=== PATIENT | male | born 1945 | race Caucasian/White ===

== ENCOUNTER 2024-12-16 06:51 | Inpatient (IN) ==
[2024-12-16] MEDS: LACTATED RINGERS 1,000 ML IV ONE (07:19)
[2024-12-16 07:51] LABS: Basophils # (Auto) 0.01 K/mcL (0.00-0.30); Basophils % (Auto) 0 % (0.0-2.0); Eosinophils # (Auto) 0.01 K/mcL (0.00-0.70); Eosinophils % (Auto) 0 % (0.0-7.0); Hematocrit 41.7 % (40.1-51.0); Hemoglobin 13.8 g/dL (13.7-17.5); Lymphocytes # (Auto) 0.86 K/mcL (1.50-4.80); Lymphocytes % (Auto) 3.5 % (15.5-49.0); Mean Cell Volume 97.9 fL (80.0-100.0); Mean Corpuscular HGB Conc 33.1 g/dL (31.0-36.0); Monocytes # (Auto) 1.64 K/mcL (0.10-0.90); Monocytes % (Auto) 6.6 % (1.0-12.0); Neutrophils % (Auto) 89.3 % (38.0-78.0); Platelet Count 336 K/mcL (140-440); RBC 4.26 M/mcL (4.63-6.08); Red Cell Distribution Width 12.8 % (11.5-14.5); WBC 24.9 K/mcL (4.5-11.0)
[2024-12-16 08:11] LABS: ALT/SGPT 27 U/L (<40); AST/SGOT 20 U/L (<40); Albumin 3.6 gm/dL (3.2-5.2); Albumin/Globulin Ratio 1.2 (1.0-2.3); Alkaline Phosphatase 142 U/L (39-117); Bilirubin,Total 1.1 mg/dL (0.1-1.0); Blood Urea Nitrogen 53 mg/dL (8-23); Calcium 10.1 mg/dL (8.6-10.4); Carbon Dioxide 19 mmol/L (22-30); Chloride 101 mmol/L (96-108); Creatine Kinase 36 U/L (24-195); Glomerular Filtration Rate 23; Glucose 377 mg/dL (70-105); Potassium 4.2 mmol/L (3.3-5.1); Sodium 136 mmol/L (133-145)
[2024-12-16 08:14] LABS: INR 1.2 (0.9-1.1); Prothrombin Time 16.2 sec (11.9-14.5)
[2024-12-16] MEDS: PIPERACILLIN SODIUM/TAZOBACTAM 4.5 GM in DEXTROSE 5% IN WATER 50 ML IV ONE (08:33)
[2024-12-16] MEDS: ACETAMINOPHEN 325 MG TABLET PO ONE ×2 (08:36→09:40)
[2024-12-16] MEDS: DILTIAZEM 125 MG in DEXTROSE 5% IN WATER 100 ML IV SCH (09:09)
[2024-12-16] MEDS: 0.9 % SODIUM CHLORIDE 1,000 ML IV SCH (09:33)
[2024-12-16] MEDS: DOXYCYCLINE 100 MG in DEXTROSE 5% IN WATER 100 ML IV SCH (09:33)
[2024-12-16] MEDS: LORazepam 2 MG/ML VIAL IV ONE (09:42)
[2024-12-16] MEDS: 0.9 % SODIUM CHLORIDE 500 ML IV ONE (11:46)
[2024-12-16] MEDS: VANCOMYCIN 1,500 MG in 0.9 % SODIUM CHLORIDE 500 ML IV ONE ×2 (13:19→13:39)
[2024-12-16] MEDS: VANCOMYCIN PER PHARMACY IV ONE (13:40)
[2024-12-16] MEDS ORDERED: VANCOMYCIN PER PHARMACY IV SCH (14:30)
[2024-12-16] MEDS ORDERED: DEXTROSE 31 GM ORAL.SUSP PO PRN (14:30)
[2024-12-16] MEDS ORDERED: DEXTROSE 50% 50 ML VIAL IV PRN (14:30)
[2024-12-16] MEDS ORDERED: POLYETHYLENE GLYCOL 3350 17 GM PACKET PO PRN (14:30)
[2024-12-16] MEDS ORDERED: ONDANSETRON 4 MG/2 ML VIAL IV PRN (14:30)
[2024-12-16] MEDS ORDERED: IPRATROPIUM/ALBUTEROL 3 ML AMPUL.NEB NEB PRN (14:30)
[2024-12-16] MEDS ORDERED: SENNOSIDES 1 TABLET PO PRN (14:30)
[2024-12-16] MEDS ORDERED: ACETAMINOPHEN 500 MG TABLET PO PRN (14:36)
[2024-12-16] MEDS: IPRATROPIUM/ALBUTEROL 3 ML AMPUL.NEB NEB SCH (14:40)
[2024-12-16] MEDS: 0.9 % SODIUM CHLORIDE 10 ML SYRINGE IV SCH (14:58)
[2024-12-16] MEDS: LACTATED RINGERS 1,000 ML IV SCH (15:07)
[2024-12-16] MEDS: INSULIN LISPRO 1 UNIT/0.01 ML UNIT SQ SCH ×2 (17:35→17:36)
[2024-12-16] MEDS: CEFEPIME 2 GM VIAL IV SCH (21:03)
[2024-12-16] MEDS: APIXABAN 2.5 MG TABLET PO SCH (21:03)
[2024-12-16] MEDS: ATORVASTATIN 40 MG TABLET PO SCH (21:03)
[2024-12-16] MEDS: INSULIN GLARGINE, HUMAN 1 UNIT/0.01 ML SQ SCH (21:03)
[2024-12-17 06:55] LABS: Basophils # (Auto) 0.01 K/mcL (0.00-0.30); Basophils % (Auto) 0.1 % (0.0-2.0); Eosinophils # (Auto) 0.08 K/mcL (0.00-0.70); Eosinophils % (Auto) 0.5 % (0.0-7.0); Hematocrit 32.1 % (40.1-51.0); Hemoglobin 10.6 g/dL (13.7-17.5); Mean Cell Volume 99.1 fL (80.0-100.0); Mean Platelet Volume 9.1 fL (8.8-12.5); Monocytes # (Auto) 0.93 K/mcL (0.10-0.90); Monocytes % (Auto) 6.2 % (1.0-12.0); Neutrophils % (Auto) 88.7 % (38.0-78.0); Platelet Count 246 K/mcL (140-440); RBC 3.24 M/mcL (4.63-6.08); WBC 14.9 K/mcL (4.5-11.0)
[2024-12-17 07:13] LABS: ALT/SGPT 30 U/L (<40); AST/SGOT 25 U/L (<40); Albumin 2.8 gm/dL (3.2-5.2); Albumin/Globulin Ratio 1.2 (1.0-2.3); Alkaline Phosphatase 121 U/L (39-117); Bilirubin,Direct 0.4 mg/dL (<0.3); Bilirubin,Total 0.7 mg/dL (0.1-1.0); Blood Urea Nitrogen 45 mg/dL (8-23); Calcium 9.1 mg/dL (8.6-10.4); Carbon Dioxide 19 mmol/L (22-30); Chloride 109 mmol/L (96-108); Globulin 2.3 gm/dL (2.2-3.7); Glomerular Filtration Rate 27; Glucose 58 mg/dL (70-105); Lactate Dehydrogenase 117 U/L (135-225); Phosphorous 2.5 mg/dL (2.5-4.5); Potassium 3.4 mmol/L (3.3-5.1); Sodium 139 mmol/L (133-145); Triglycerides 75 mg/dL (<150); Uric Acid 9.3 mg/dL (2.5-8.0)
[2024-12-17] MEDS: VITAMIN D3 25 MCG TABLET PO SCH (09:10)
[2024-12-17 10:02] LABS: Vancomycin,Random 11.5 ug/mL
[2024-12-17] MEDS: VANCOMYCIN 1,000 MG in 0.9 % SODIUM CHLORIDE 250 ML IV SCH (11:26)
[2024-12-17] MEDS: LACTATED RINGERS 250 ML IV ONE (12:22)
[2024-12-17] MEDS: METOPROLOL TARTRATE 5 MG/5 ML VIAL IV SCH ×2 (12:59→13:04)
[2024-12-17] MEDS ORDERED: 0.9 % SODIUM CHLORIDE 1,000 ML IV SCH (13:00)
[2024-12-17 13:26] LABS: Basophils # (Auto) 0.01 K/mcL (0.00-0.30); Basophils % (Auto) 0.1 % (0.0-2.0); Eosinophils # (Auto) 0.11 K/mcL (0.00-0.70); Eosinophils % (Auto) 0.8 % (0.0-7.0); Hematocrit 35.2 % (40.1-51.0); Hemoglobin 11.5 g/dL (13.7-17.5); Lymphocytes # (Auto) 0.64 K/mcL (1.50-4.80); Lymphocytes % (Auto) 4.9 % (15.5-49.0); Mean Cell Volume 98.6 fL (80.0-100.0); Mean Corpuscular HGB Conc 32.7 g/dL (31.0-36.0); Mean Platelet Volume 8.5 fL (8.8-12.5); Monocytes # (Auto) 0.68 K/mcL (0.10-0.90); Monocytes % (Auto) 5.2 % (1.0-12.0); Neutrophils % (Auto) 88.5 % (38.0-78.0); Platelet Count 200 K/mcL (140-440); RBC 3.57 M/mcL (4.63-6.08); Red Cell Distribution Width 12.9 % (11.5-14.5); WBC 13.1 K/mcL (4.5-11.0)
[2024-12-17] MEDS: METOPROLOL TARTRATE 5 MG/5 ML VIAL IV ONE ×2 (13:30→13:31)
[2024-12-17] MEDS: FUROSEMIDE 40 MG/4 ML VIAL IV ONE (13:31)
[2024-12-17 13:51] LABS: ALT/SGPT 40 U/L (<40); AST/SGOT 37 U/L (<40); Albumin 2.9 gm/dL (3.2-5.2); Albumin/Globulin Ratio 1.2 (1.0-2.3); Alkaline Phosphatase 156 U/L (39-117); Bilirubin,Direct 0.5 mg/dL (<0.3); Bilirubin,Total 0.8 mg/dL (0.1-1.0); Blood Urea Nitrogen 40 mg/dL (8-23); Calcium 9.1 mg/dL (8.6-10.4); Carbon Dioxide 20 mmol/L (22-30); Chloride 106 mmol/L (96-108); Globulin 2.4 gm/dL (2.2-3.7); Glomerular Filtration Rate 28; Glucose 187 mg/dL (70-105); Lactate Dehydrogenase 123 U/L (135-225); Potassium 3.3 mmol/L (3.3-5.1); Sodium 138 mmol/L (133-145); Triglycerides 108 mg/dL (<150); Uric Acid 8.6 mg/dL (2.5-8.0)
[2024-12-17] MEDS: FUROSEMIDE 40 MG/4 ML VIAL IV SCH (13:53)
[2024-12-17] MEDS: LIDOCAINE 2% URO-JET 10 ML JEL.PF.APP UR ONE (13:56)
[2024-12-17] MEDS: POTASSIUM CHLORIDE 20 MEQ TABLET PO ONE (14:44)
[2024-12-17 15:47] LABS: Appearance,Urine Slightly Cloudy (Clear); Bacteria,Urine Rare /hpf (0); Bilirubin,Urine Negative (Negative); Color,Urine Yellow; Glucose,Urine (UA) 100 mg/dL (Negative); Ketones,Urine Negative (Negative); Leukocyte Esterase,Urine Negative /uL (Negative); Nitrate,Urine Negative (Negative); PH,Urine 5.5 (5.0-9.0); Protein,Urine 30 mg/dL (Negative); Specific Gravity,Urine 1.015 (1.000-1.035); Urine Blood Large ery/mcL (Negative); Urine RBC 120 /hpf (0-3); Urine Squamous Epithelial Cell 0 /hpf (0-4); Urine WBC 2 /hpf (0-4); Urobilinogen,Urine 0.2 mg/dL
[2024-12-17] MEDS ORDERED: DILTIAZEM 125 MG in DEXTROSE 5% IN WATER 100 ML IV PRN (17:14)
[2024-12-17] MEDS: METOPROLOL TARTRATE 25 MG TABLET PO ONE (19:20)
[2024-12-17] MEDS: POTASSIUM PHOSPHATE 40 MEQ in DEXTROSE 5% IN WATER 500 ML IV ONE (19:20)
[2024-12-17] MEDS: POTASSIUM PHOSPHATE 66 MEQ/15 ML VIAL IV ONE (19:38)
[2024-12-17] MEDS: METOPROLOL TARTRATE 25 MG TABLET ONE (19:38)
[2024-12-17] MEDS: INSULIN GLARGINE, HUMAN 1 UNIT/0.01 ML SQ SCH (21:09)
[2024-12-17] MEDS: TAMSULOSIN 0.4 MG CAPSULE PO SCH (21:09)
[2024-12-17] MEDS: CEFEPIME 1 GM VIAL IV SCH (21:09)
[2024-12-18 07:51] LABS: Basophils # (Auto) 0.01 K/mcL (0.00-0.30); Basophils % (Auto) 0.1 % (0.0-2.0); Eosinophils # (Auto) 0.17 K/mcL (0.00-0.70); Eosinophils % (Auto) 1.5 % (0.0-7.0); Hematocrit 34.2 % (40.1-51.0); Hemoglobin 11.2 g/dL (13.7-17.5); Lymphocytes # (Auto) 0.63 K/mcL (1.50-4.80); Lymphocytes % (Auto) 5.7 % (15.5-49.0); Mean Cell Volume 98.6 fL (80.0-100.0); Mean Corpuscular HGB Conc 32.7 g/dL (31.0-36.0); Mean Platelet Volume 9.1 fL (8.8-12.5); Monocytes # (Auto) 0.78 K/mcL (0.10-0.90); Monocytes % (Auto) 7.1 % (1.0-12.0); Neutrophils % (Auto) 85.1 % (38.0-78.0); Platelet Count 212 K/mcL (140-440); RBC 3.47 M/mcL (4.63-6.08); Red Cell Distribution Width 12.9 % (11.5-14.5); WBC 11.1 K/mcL (4.5-11.0)
[2024-12-18 08:08] LABS: ALT/SGPT 53 U/L (<40); AST/SGOT 48 U/L (<40); Albumin 2.8 gm/dL (3.2-5.2); Albumin/Globulin Ratio 1.2 (1.0-2.3); Alkaline Phosphatase 179 U/L (39-117); Bilirubin,Direct 0.5 mg/dL (<0.3); Bilirubin,Total 0.9 mg/dL (0.1-1.0); Blood Urea Nitrogen 32 mg/dL (8-23); Calcium 8.8 mg/dL (8.6-10.4); Carbon Dioxide 19 mmol/L (22-30); Chloride 108 mmol/L (96-108); Globulin 2.4 gm/dL (2.2-3.7); Glomerular Filtration Rate 30; Glucose 54 mg/dL (70-105); Lactate Dehydrogenase 119 U/L (135-225); Phosphorous 2.8 mg/dL (2.5-4.5); Potassium 3.4 mmol/L (3.3-5.1); Sodium 139 mmol/L (133-145); Triglycerides 83 mg/dL (<150); Uric Acid 8.8 mg/dL (2.5-8.0)
[2024-12-18] MEDS: METOPROLOL TARTRATE 25 MG TABLET PO SCH (08:22)
[2024-12-18] MEDS: predniSONE 20 MG TABLET PO SCH (11:27)
[2024-12-18] MEDS: LEVOFLOXACIN 750 MG/150 ML BAG IV SCH (17:15)
[2024-12-18] MEDS: VANCOMYCIN 1,000 MG in 0.9 % SODIUM CHLORIDE 250 ML IV SCH (18:59)
[2024-12-18] MEDS: INSULIN GLARGINE, HUMAN 1 UNIT/0.01 ML SQ SCH (20:27)
[2024-12-19 06:56] LABS: Basophils # (Auto) 0 K/mcL (0.00-0.30); Basophils % (Auto) 0 % (0.0-2.0); Eosinophils # (Auto) 0 K/mcL (0.00-0.70); Eosinophils % (Auto) 0 % (0.0-7.0); Hematocrit 31.4 % (40.1-51.0); Hemoglobin 10.6 g/dL (13.7-17.5); Lymphocytes # (Auto) 0.33 K/mcL (1.50-4.80); Lymphocytes % (Auto) 4.3 % (15.5-49.0); Mean Cell Volume 96.9 fL (80.0-100.0); Mean Corpuscular HGB Conc 33.8 g/dL (31.0-36.0); Monocytes # (Auto) 0.33 K/mcL (0.10-0.90); Monocytes % (Auto) 4.3 % (1.0-12.0); Neutrophils % (Auto) 90.9 % (38.0-78.0); Platelet Count 207 K/mcL (140-440); RBC 3.24 M/mcL (4.63-6.08); Red Cell Distribution Width 12.7 % (11.5-14.5); WBC 7.7 K/mcL (4.5-11.0)
[2024-12-19 07:40] LABS: ALT/SGPT 49 U/L (<40); AST/SGOT 33 U/L (<40); Albumin 2.8 gm/dL (3.2-5.2); Albumin/Globulin Ratio 1.2 (1.0-2.3); Alkaline Phosphatase 176 U/L (39-117); Bilirubin,Direct 0.3 mg/dL (<0.3); Bilirubin,Total 0.6 mg/dL (0.1-1.0); Blood Urea Nitrogen 39 mg/dL (8-23); Calcium 9.1 mg/dL (8.6-10.4); Carbon Dioxide 19 mmol/L (22-30); Chloride 107 mmol/L (96-108); Globulin 2.4 gm/dL (2.2-3.7); Glomerular Filtration Rate 28; Glucose 228 mg/dL (70-105); Lactate Dehydrogenase 122 U/L (135-225); Phosphorous 3.1 mg/dL (2.5-4.5); Potassium 4.4 mmol/L (3.3-5.1); Sodium 138 mmol/L (133-145); Triglycerides 69 mg/dL (<150); Uric Acid 8.5 mg/dL (2.5-8.0)
[2024-12-19 12:17] LABS: Vancomycin,Random 19.1 ug/mL
[2024-12-19] MEDS: AMOXICILLIN/POTASSIUM CLAV 875 MG TABLET PO SCH (12:58)
[2024-12-19] MEDS ORDERED: AMOXICILLIN/POTASSIUM CLAV 875 MG TABLET PO SCH ×2 (17:30)
[2024-12-20 06:54] LABS: Basophils # (Auto) 0 K/mcL (0.00-0.30); Basophils % (Auto) 0 % (0.0-2.0); Eosinophils # (Auto) 0 K/mcL (0.00-0.70); Eosinophils % (Auto) 0 % (0.0-7.0); Hematocrit 31.1 % (40.1-51.0); Hemoglobin 10.5 g/dL (13.7-17.5); Lymphocytes # (Auto) 0.48 K/mcL (1.50-4.80); Lymphocytes % (Auto) 4.7 % (15.5-49.0); Mean Cell Volume 97.2 fL (80.0-100.0); Mean Corpuscular HGB Conc 33.8 g/dL (31.0-36.0); Mean Platelet Volume 8.9 fL (8.8-12.5); Monocytes # (Auto) 0.51 K/mcL (0.10-0.90); Neutrophils % (Auto) 89.8 % (38.0-78.0); Platelet Count 232 K/mcL (140-440); Red Cell Distribution Width 12.9 % (11.5-14.5); WBC 10.2 K/mcL (4.5-11.0)
[2024-12-20 07:39] LABS: C-Reactive Protein 5.85 mg/dL (0.03-0.80)
[2024-12-20 07:39] LABS: ALT/SGPT 46 U/L (<40); AST/SGOT 29 U/L (<40); Albumin 2.7 gm/dL (3.2-5.2); Albumin/Globulin Ratio 1.2 (1.0-2.3); Alkaline Phosphatase 157 U/L (39-117); Bilirubin,Direct 0.2 mg/dL (<0.3); Bilirubin,Total 0.4 mg/dL (0.1-1.0); Blood Urea Nitrogen 48 mg/dL (8-23); Calcium 9.3 mg/dL (8.6-10.4); Carbon Dioxide 18 mmol/L (22-30); Chloride 110 mmol/L (96-108); Globulin 2.3 gm/dL (2.2-3.7); Glomerular Filtration Rate 28; Glucose 236 mg/dL (70-105); Lactate Dehydrogenase 129 U/L (135-225); Phosphorous 3.3 mg/dL (2.5-4.5); Potassium 4.6 mmol/L (3.3-5.1); Sodium 139 mmol/L (133-145); Triglycerides 74 mg/dL (<150); Uric Acid 8.6 mg/dL (2.5-8.0)
[2024-12-20] MEDS: LEVOFLOXACIN 750 MG TABLET PO SCH (09:06)
[2024-12-20 11:30] VITALS: TEMP 97.3; O2SAT 98
== END 2024-12-20 12:47 | disposition home or self-care (01) | DRG 177 ==
LOC: ED 06:51 → ICU 14:23 → MEDSUR 12-19 05:47
PROVIDERS: ADMIT Student in an Organized Health Care Education/Training Program; ATTEND Student in an Organized Health Care Education/Training Program

== ENCOUNTER 2025-01-30 13:38 | Inpatient (IN) ==
[2025-01-30 14:10] LABS: Basophils # (Auto) 0.01 K/mcL (0.00-0.30); Basophils % (Auto) 0.1 % (0.0-2.0); Eosinophils # (Auto) 0.02 K/mcL (0.00-0.70); Eosinophils % (Auto) 0.2 % (0.0-7.0); Hemoglobin 12.6 g/dL (13.7-17.5); Lymphocytes # (Auto) 0.29 K/mcL (1.50-4.80); Lymphocytes % (Auto) 3.3 % (15.5-49.0); Mean Cell Volume 95.5 fL (80.0-100.0); Mean Corpuscular HGB Conc 33.2 g/dL (31.0-36.0); Mean Platelet Volume 8.6 fL (8.8-12.5); Monocytes # (Auto) 0.27 K/mcL (0.10-0.90); Monocytes % (Auto) 3.1 % (1.0-12.0); Neutrophils % (Auto) 91.6 % (38.0-78.0); Platelet Count 298 K/mcL (140-440); RBC 3.98 M/mcL (4.63-6.08); Red Cell Distribution Width 13.7 % (11.5-14.5); WBC 8.8 K/mcL (4.5-11.0)
[2025-01-30 14:25] LABS: ALT/SGPT 30 U/L (<40); AST/SGOT 37 U/L (<40); Albumin 2.7 gm/dL (3.2-5.2); Albumin/Globulin Ratio 1.1 (1.0-2.3); Alkaline Phosphatase 138 U/L (39-117); Bilirubin,Total 0.6 mg/dL (0.1-1.0); Blood Urea Nitrogen 78 mg/dL (8-23); Calcium 10.7 mg/dL (8.6-10.4); Carbon Dioxide 23 mmol/L (22-30); Chloride 103 mmol/L (96-108); Globulin 2.5 gm/dL (2.2-3.7); Glomerular Filtration Rate 15; Glucose 80 mg/dL (70-105); Potassium 3.6 mmol/L (3.3-5.1); Sodium 140 mmol/L (133-145)
[2025-01-30] MEDS: 0.9 % SODIUM CHLORIDE 500 ML IV ONE (14:26)
[2025-01-30] MEDS: METOPROLOL TARTRATE 5 MG/5 ML VIAL IV ONE (14:29)
[2025-01-30 18:54] LABS: Appearance,Urine Clear (Clear); Bilirubin,Urine Negative (Negative); Calcium Oxalate Crystals,Urine Mod /hpf; Color,Urine Yellow; Glucose,Urine (UA) Negative (Negative); Ketones,Urine Negative (Negative); Leukocyte Esterase,Urine Negative /uL (Negative); Nitrate,Urine Negative (Negative); Protein,Urine Negative (Negative); Specific Gravity,Urine 1.015 (1.000-1.035); Urine Blood Negative ery/mcL (Negative); Urine RBC 0 /hpf (0-3); Urine Squamous Epithelial Cell 1 /hpf (0-4); Urine WBC 0 /hpf (0-4); Urobilinogen,Urine Normal
[2025-01-30] MEDS: DEXTROSE 50% 50 ML SYRINGE IV ONE (19:02)
[2025-01-30] MEDS ORDERED: ACETAMINOPHEN 325 MG TABLET PO PRN (20:06)
[2025-01-30] MEDS ORDERED: ONDANSETRON 4 MG/2 ML VIAL IV PRN (20:06)
[2025-01-30] MEDS ORDERED: IPRATROPIUM/ALBUTEROL 3 ML AMPUL.NEB NEB PRN (20:06)
[2025-01-30] MEDS ORDERED: oxyCODONE IR 5 MG TABLET PO PRN (20:06)
[2025-01-30] MEDS ORDERED: DEXTROSE 31 GM ORAL.SUSP PO PRN (20:06)
[2025-01-30] MEDS: 0.9 % SODIUM CHLORIDE 1,000 ML IV SCH (20:26)
[2025-01-30] MEDS: 0.9 % SODIUM CHLORIDE 10 ML SYRINGE IV SCH (20:32)
[2025-01-30] MEDS: INSULIN LISPRO 1 UNIT/0.01 ML UNIT SQ SCH (21:26)
[2025-01-30] MEDS: DOCUSATE SODIUM 100 MG CAPSULE PO SCH (21:29)
[2025-01-30] MEDS: SENNOSIDES 1 TABLET PO SCH (21:29)
[2025-01-31] MEDS: DEXTROSE 50% 50 ML VIAL IV PRN (06:43)
[2025-01-31] MEDS: DEXTROSE 50% 50 ML SYRINGE IV ONE (06:52)
[2025-01-31 07:43] LABS: Basophils # (Auto) 0.02 K/mcL (0.00-0.30); Basophils % (Auto) 0.3 % (0.0-2.0); Eosinophils # (Auto) 0.01 K/mcL (0.00-0.70); Eosinophils % (Auto) 0.1 % (0.0-7.0); Hematocrit 35.9 % (40.1-51.0); Hemoglobin 11.9 g/dL (13.7-17.5); Lymphocytes # (Auto) 0.25 K/mcL (1.50-4.80); Lymphocytes % (Auto) 3.2 % (15.5-49.0); Mean Cell Volume 97.3 fL (80.0-100.0); Mean Corpuscular HGB Conc 33.1 g/dL (31.0-36.0); Mean Platelet Volume 8.8 fL (8.8-12.5); Monocytes # (Auto) 0.27 K/mcL (0.10-0.90); Monocytes % (Auto) 3.5 % (1.0-12.0); Neutrophils % (Auto) 91.9 % (38.0-78.0); Platelet Count 267 K/mcL (140-440); RBC 3.69 M/mcL (4.63-6.08); WBC 7.8 K/mcL (4.5-11.0)
[2025-01-31 08:00] LABS: ALT/SGPT 27 U/L (<40); AST/SGOT 43 U/L (<40); Albumin 2.4 gm/dL (3.2-5.2); Alkaline Phosphatase 132 U/L (39-117); Bilirubin,Total 0.6 mg/dL (0.1-1.0); Blood Urea Nitrogen 79 mg/dL (8-23); Carbon Dioxide 21 mmol/L (22-30); Chloride 107 mmol/L (96-108); Globulin 2.5 gm/dL (2.2-3.7); Glomerular Filtration Rate 17; Glucose 92 mg/dL (70-105); Potassium 3.3 mmol/L (3.3-5.1); Sodium 142 mmol/L (133-145)
[2025-01-31 10:01] LABS: Estimated Average Glucose(eAG) 169 mg/dL; Hemoglobin A1C 7.5 % Hgb (4.0-6.0)
[2025-01-31] MEDS: DEXTROSE 5%-1/2NS 1,000 ML IV SCH (10:27)
[2025-01-31] MEDS: MEGESTROL ACETATE 400 MG/10 ML UDC PO SCH (15:13)
[2025-01-31] MEDS: POTASSIUM CHLORIDE 20 MEQ/15 ML ML PO SCH (17:23)
[2025-01-31] MEDS: traZODone HCL 50 MG TABLET PO PRN (20:06)
[2025-01-31] MEDS: TAMSULOSIN 0.4 MG CAPSULE PO SCH (21:02)
[2025-01-31] MEDS: APIXABAN 2.5 MG TABLET PO SCH (21:03)
[2025-01-31] MEDS: ATORVASTATIN 40 MG TABLET PO SCH (21:03)
[2025-02-01 05:59] LABS: Basophils # (Auto) 0.01 K/mcL (0.00-0.30); Basophils % (Auto) 0.2 % (0.0-2.0); Eosinophils # (Auto) 0.04 K/mcL (0.00-0.70); Eosinophils % (Auto) 0.6 % (0.0-7.0); Hematocrit 32.4 % (40.1-51.0); Hemoglobin 10.6 g/dL (13.7-17.5); Lymphocytes # (Auto) 0.26 K/mcL (1.50-4.80); Lymphocytes % (Auto) 4.2 % (15.5-49.0); Mean Cell Volume 99.7 fL (80.0-100.0); Mean Corpuscular HGB Conc 32.7 g/dL (31.0-36.0); Mean Platelet Volume 8.8 fL (8.8-12.5); Monocytes # (Auto) 0.28 K/mcL (0.10-0.90); Monocytes % (Auto) 4.5 % (1.0-12.0); Neutrophils % (Auto) 89.4 % (38.0-78.0); Platelet Count 222 K/mcL (140-440); RBC 3.25 M/mcL (4.63-6.08); Red Cell Distribution Width 14.3 % (11.5-14.5); WBC 6.2 K/mcL (4.5-11.0)
[2025-02-01 06:18] LABS: ALT/SGPT 22 U/L (<40); AST/SGOT 37 U/L (<40); Albumin 2.2 gm/dL (3.2-5.2); Albumin/Globulin Ratio 1.1 (1.0-2.3); Alkaline Phosphatase 113 U/L (39-117); Bilirubin,Total 0.6 mg/dL (0.1-1.0); Blood Urea Nitrogen 69 mg/dL (8-23); Calcium 9.7 mg/dL (8.6-10.4); Carbon Dioxide 20 mmol/L (22-30); Chloride 112 mmol/L (96-108); Glomerular Filtration Rate 19; Glucose 78 mg/dL (70-105); Potassium 3.4 mmol/L (3.3-5.1); Sodium 143 mmol/L (133-145)
[2025-02-01] MEDS: DEXTROSE 5%-LR 1,000 ML IV SCH ×2 (12:43→17:13)
[2025-02-02] MEDS: DEXTROSE 5%-LR 1,000 ML IV SCH ×2 (00:03→03:38)
[2025-02-02 06:27] LABS: Basophils # (Auto) 0.01 K/mcL (0.00-0.30); Basophils % (Auto) 0.2 % (0.0-2.0); Eosinophils # (Auto) 0.03 K/mcL (0.00-0.70); Eosinophils % (Auto) 0.5 % (0.0-7.0); Hematocrit 32.9 % (40.1-51.0); Hemoglobin 10.8 g/dL (13.7-17.5); Lymphocytes # (Auto) 0.26 K/mcL (1.50-4.80); Lymphocytes % (Auto) 4.4 % (15.5-49.0); Mean Cell Volume 97.3 fL (80.0-100.0); Mean Corpuscular HGB Conc 32.8 g/dL (31.0-36.0); Mean Platelet Volume 8.8 fL (8.8-12.5); Monocytes # (Auto) 0.26 K/mcL (0.10-0.90); Monocytes % (Auto) 4.4 % (1.0-12.0); Neutrophils % (Auto) 89.3 % (38.0-78.0); Platelet Count 219 K/mcL (140-440); RBC 3.38 M/mcL (4.63-6.08); Red Cell Distribution Width 14.2 % (11.5-14.5); WBC 5.9 K/mcL (4.5-11.0)
[2025-02-02 06:45] LABS: ALT/SGPT 25 U/L (<40); AST/SGOT 34 U/L (<40); Albumin 2.2 gm/dL (3.2-5.2); Albumin/Globulin Ratio 1.1 (1.0-2.3); Alkaline Phosphatase 117 U/L (39-117); Bilirubin,Total 0.5 mg/dL (0.1-1.0); Blood Urea Nitrogen 61 mg/dL (8-23); Calcium 10.2 mg/dL (8.6-10.4); Carbon Dioxide 21 mmol/L (22-30); Chloride 117 mmol/L (96-108); Glomerular Filtration Rate 22; Glucose 79 mg/dL (70-105); Potassium 3.5 mmol/L (3.3-5.1); Sodium 147 mmol/L (133-145)
[2025-02-02] MEDS: 0.45 % SODIUM CHLORIDE 1,000 ML IV SCH ×2 (08:01→17:27)
[2025-02-02] MEDS: DEXTROSE 5%-1/2NS 1,000 ML IV SCH ×2 (08:44→18:51)
[2025-02-02 15:43] LABS: Sodium 148 mmol/L (133-145)
[2025-02-02] MEDS: morphine 4 MG/ML VIAL IV PRN (23:10)
[2025-02-03 08:28] LABS: Basophils # (Auto) 0.01 K/mcL (0.00-0.30); Basophils % (Auto) 0.2 % (0.0-2.0); Eosinophils # (Auto) 0.09 K/mcL (0.00-0.70); Eosinophils % (Auto) 1.9 % (0.0-7.0); Hematocrit 31.1 % (40.1-51.0); Hemoglobin 9.9 g/dL (13.7-17.5); Lymphocytes # (Auto) 0.25 K/mcL (1.50-4.80); Lymphocytes % (Auto) 5.4 % (15.5-49.0); Mean Cell Volume 101.3 fL (80.0-100.0); Mean Corpuscular HGB Conc 31.8 g/dL (31.0-36.0); Mean Platelet Volume 8.7 fL (8.8-12.5); Monocytes # (Auto) 0.24 K/mcL (0.10-0.90); Monocytes % (Auto) 5.2 % (1.0-12.0); Platelet Count 178 K/mcL (140-440); RBC 3.07 M/mcL (4.63-6.08); Red Cell Distribution Width 14.3 % (11.5-14.5); WBC 4.6 K/mcL (4.5-11.0)
[2025-02-03 08:50] LABS: ALT/SGPT 23 U/L (<40); AST/SGOT 33 U/L (<40); Albumin 1.9 gm/dL (3.2-5.2); Alkaline Phosphatase 108 U/L (39-117); Bilirubin,Total 0.5 mg/dL (0.1-1.0); Blood Urea Nitrogen 50 mg/dL (8-23); Calcium 9.7 mg/dL (8.6-10.4); Carbon Dioxide 20 mmol/L (22-30); Chloride 115 mmol/L (96-108); Glomerular Filtration Rate 27; Glucose 135 mg/dL (70-105); Potassium 3.8 mmol/L (3.3-5.1); Sodium 143 mmol/L (133-145)
[2025-02-03 11:49] VITALS: TEMP 97; O2SAT 98
== END 2025-02-03 14:20 | disposition hospice, inpatient (51) | DRG 683 ==
LOC: ED 13:38 → MEDSUR 20:04
PROVIDERS: ADMIT Internal Medicine; ATTEND Student in an Organized Health Care Education/Training Program